=== PATIENT | male | born 1950 | race Caucasian/White ===

== ENCOUNTER 2018-10-12 10:41 | Day surgery (SDC) | payer MEDICARE ==
[~2018-10-12] VITALS: Ht 180.3 cm; Wt 94.5 kg
[2018-10-12 11:13] LABS: HEMOGLOBIN 13.4 g/dL (13.5-17.5); MCH 28.8 pg (26.0-34.0); MCHC 32.7 g/dL (31.0-37.0); MEAN PLATELET VOLUME 9.8 fL (7.4-10.4); RBC 4.66 10x6/uL (4.20-6.10); WBC 13.4 10x3/uL (4.8-10.8)
[2018-10-12] MEDS ORDERED: FUROSEMIDE40 MG PO (12:58)
[2018-10-12] MEDS ORDERED: TRAZODONE HCL100 MG PO (12:58)
[2018-10-12] MEDS ORDERED: PROVIGIL200 MG PO (12:59)
[2018-10-12] MEDS ORDERED: REMERON15 MG PO (13:00)
[2018-10-12] MEDS ORDERED: LIPITOR10 MG PO (13:00)
[2018-10-12] MEDS ORDERED: BUPROPION XL300 MG PO (13:00)
[2018-10-12] MEDS ORDERED: GEODON80 MG PO (13:01)
[2018-10-12] MEDS ORDERED: PLAVIX75 MG PO (13:01)
[2018-10-12] MEDS ORDERED: PEPCID AC20 MG PO (13:01)
[2018-10-12 13:02] VITALS: BP 135/75; Ht 180.3 cm; Wt 94.5 kg
--- NOTE | 2018-10-12 15:48 | NUR ---
D/C INSTRUCTIONS REVIEWED WITH PT AT THIS TIME, PT VERBALIZES UNDERSTANDING. Pt IV REMOVED AT THIS TIME, INTACT NO REDNESS OR SWELLINGN AT SITE.
--- NOTE | 2018-10-12 16:01 | NUR ---
PT LEFT UNIT VIA WC AT 1554
--- NOTE | 2018-10-19 15:47 | OP ---
PATIENT NAME: ROSA MARIA LARA MEDICAL RECORD: [id number] :50 LOCATION:[facility] ADMISSION DATE: SURGEON: CONOR JACK DO DATE OF OPERATION: 10/12/2018 PROCEDURE: Colonoscopy with endoscopic mucosal resection and polypectomy. INDICATIONS FOR PROCEDURE: Screening for colorectal cancer and a personal history of polyps. His last colonoscopy was in May 2017. It was recommended that he follow up in a year for a known polyp that was not removed at that time. SCOPE: Olympus video pediatric colonoscope. MEDICATIONS: Propofol 650 mg IV per anesthesia. WITHDRAWAL TIME: 28 minutes. ESTIMATED BLOOD LOSS: Minimal. COMPLICATIONS: None immediate. FINDINGS: Informed consent was given. The patient was made comfortable with the above medication. After reaching an adequate level of sedation by slow IV push, the patient was placed on the left side. A digital rectal examination was performed and was normal. The endoscope was then advanced under direct visualization through the rectum to the cecum, confirmed by the presence of the appendiceal orifice and ileocecal valve. The endoscope was slowly withdrawn and mucosa was carefully examined. The prep quality was fair. There were 5 polyps visualized on today's examination. One was located in the transverse colon. It was benign appearing sessile polyp measuring approximately 5 mm in diameter. It was removed using hot forceps. In the descending colon, there were two separate polyps which were benign-appearing and sessile. They ranged in size from 4-5 mm in diameter. They were both removed using hot forceps in 1 piece and completely retrieved. In the sigmoid colon, there were 2 separate polyps. One was a benign appearing sessile polyp, which measured approximately 7-8 mm in diameter. It was removed using hot snare in 1 piece and completely retrieved. Also, in the sigmoid colon, there was a larger polyp which was very difficult to visualize adequately. It was in an area around sigmoid diverticula. It was possibly a conglomerate of a few separate polyps. The total size measured approximately 1.3-1.5 cm. For removal, the entire area was lifted using a saline cushion. Following this, piecemeal resection with a hot snare was performed until the entire area was adequately removed. The snare tip was used for further cauterization of the bed of this area as well as the surrounding tissue. Removal was adequate and successful. There was evidence of [id number] diverticulosis of the sigmoid colon. Retroflexion was performed in the rectum with a normal appearing rectal wall. The endoscope was withdrawn from the patient. The patient tolerated the procedure well and there were no complications. IMPRESSION: Multiple polyps as described above, removed using a combination of hot forceps, hot snare, and endoscopic mucosal resection technique. PLAN AND RECOMMENDATIONS: 1. Discharge home when recovery parameters are met. 2. Follow up biopsy specimen results. OPERATIVE REPORT [id number] ROSA MARIA LARA 3. High fiber diet. 4. Continue current medications. 5. Resume Plavix in 72 hours. 6. Recall colonoscopy in 1 year based on the number and types of polyps and size of polyps removed on today's examination. TRANSINT:[id number] Voice Confirmation ID: [id number] DOCUMENT ID: [id number] CONOR JACK DO at 1547 CC: [id number] DICTATION DATE: 10/12/18 1515 ENGINEERING TECHNOLOGY INSTRUCTOR: 10/12/18 1804 [facility] 10/12/[address] [id number]
== END 2018-10-12 15:54 | disposition home or self-care (01) ==
LOC: D.OPS 10:41
PROVIDERS: Anesthesiology
DX: Z12.11 Encounter for screening for malignant neoplasm of colon (principal); K63.5 Polyp of colon; C18.6 Malignant neoplasm of descending colon; C18.7 Malignant neoplasm of sigmoid colon; K57.30 Diverticulosis of large intestine without perforation or abscess without bleeding; Z86.010 Personal history of colon polyps; Z01.812 Encounter for preprocedural laboratory examination